=== PATIENT | female | born 1950 | race Hispanic/Latino ===

== ENCOUNTER 2020-12-04 23:06 | Emergency (ER) | payer MEDICARE ==
[~2020-12-04] VITALS: Ht 157.5 cm; Wt 60.8 kg
== END 2020-12-05 00:05 | disposition home or self-care (01) ==
LOC: ER 23:33
DX: F41.9 Anxiety disorder, unspecified (principal); I10 Essential (primary) hypertension
CPT/HCPCS: 93005; 99282